=== PATIENT | female | born 1995 | race Caucasian/White ===

== ENCOUNTER 2022-03-17 21:20 | Emergency (ER) | payer OTHER, SELFPAY ==
[2022-03-17 21:30] VITALS: BP 137/79; PULSE 112; RESP 18; TEMP 37.5; O2SAT 96
--- NOTE | 2022-03-17 21:57 | DI.RAD.S_ITS ---
PROCEDURE: XR CHEST 1V INDICATIONS: chest pain TECHNIQUE: One view of the chest was acquired. COMPARISON: None. FINDINGS: Surgical changes and devices: None. Lungs and pleura: Lungs are clear. No pleural effusions or pneumothorax. Mediastinum: Mediastinal contours appear normal. Heart size is normal. Bones and chest wall: No suspicious bony lesions. Overlying soft tissues appear unremarkable. IMPRESSION: 1. No acute cardiopulmonary disease. Dictated by: Jakob Levy M.D. on 03/17/2022 at 22:45 Approved by: Jakob Levy M.D. on 03/17/2022 at 22:48
[2022-03-17] MEDS: ASPIRIN 81 MG CHEW TAB 324 MG PO (22:04)
[2022-03-17 22:30] LABS: Add Manual Diff / Slide Review NO; Basophils Absolute Auto 0 /uL (0-100); Basophils Percent Auto 0.4 % (0-2); Eosinophils Absolute Auto 0 /uL (0-450); Eosinophils Percent Auto 0.6 % (2-4); Hematocrit 37.9 % (36-46); Hemoglobin 13.2 g/dL (12.0-16.0); Lymphocytes Absolute Auto 1700 /uL (1100-4500); Lymphocytes Percent Auto 29.2 % (25-40); Mean Corpuscular HGB Conc 34.8 % (30-36); Mean Corpuscular Hemoglobin 32.5 PG (26-34); Mean Corpuscular Volume 93.6 fL (80-100); Monocytes Absolute Auto 600 /uL (0-900); Monocytes Percent Auto 10.2 % (3-14); Neutrophils Absolute Auto 3400 /uL (1500-7000); Neutrophils Percent Auto 59.6 % (50-75); Platelet Count 190 X10^3/uL (150-400); Red Blood Cell Count 4.05 X10^6/uL (4.0-5.2); Red Cell Distribution Width 12.1 % (11.6-14.8); White Blood Cell Count 5.8 X10^3/uL (4.5-11.0)
[2022-03-17 22:34] LABS: INR 0.9 (0.9-1.3); Prothrombin Time 10.8 SECONDS (10.1-12.7)
[2022-03-17 22:37] LABS: PTT Partial Thromboplastin Tim 26 SECONDS (26-36)
[2022-03-17 22:40] LABS: Alanine Aminotransferase 26 IU/L (<35); Albumin 4.2 g/dL (3.5-5.0); Albumin Globulin Ratio 1.4 (1.0-2.8); Alkaline Phosphatase 37 U/L (38-126); Aspartate Aminotransferase 24 IU/L (14-36); BUN Creatinine Ratio 17.6 (6-22); Bilirubin Total 0.2 mg/dL (0.2-1.3); Blood Urea Nitrogen 13 mg/dL (7-17); Calcium 8.7 mg/dL (8.4-10.2); Carbon Dioxide 20 mmol/L (22-32); Chloride 111 mmol/L (98-107); Creatine Kinase 50 U/L (30-135); Estimated Glomerular Filt Rate > 60 mL/min (>60); Globulin 3.1 g/dL (1.7-4.1); Glucose 119 mg/dL (70-100); HEMOLYSIS 17 (0-50); Lipase 85 U/L (23-300); Potassium 3.7 mmol/L (3.4-5.1); Sodium 140 mmol/L (137-145); Total Protein 7.3 g/dL (6.3-8.2)
[2022-03-17 22:51] LABS: Troponin I < 0.012 ng/mL (0.01-0.034)
--- NOTE | 2022-03-18 00:16 | ED_ITS ---
HPI - Chest Pain General Chief Complaint: Chest Pain Stated Complaint: tightness in chest Time Seen by Provider: 03/18/22 00:06 Mode of arrival: Ambulatory Limitations: no limitations History of Present Illness HPI narrative: Patient here with . Complaints of left-sided chest pain that radiated to her left arm and face with tingling they last about 10 minutes yesterday. Around 3:00 p.m.. She had another episode today but not quite as severe. Currently asymptomatic. Patient has seen Cardiology group in [place] when she was a teenager for irregular heartbeat but also for an opening between the ventricles. She states they tried to do a surgery by camera but unable to find the opening to close it at that time. They recommended returning for open heart surgery but this was never done. Denies any exertional chest pain or dyspnea. Denies any syncope. Related Data Allergies Allergy/AdvReac Type Severity Reaction Status Date / Time No Known Drug Allergies Allergy Verified 03/17/22 22:04 Review of Systems Review of Systems Narrative: GENERAL: negative chills, fatigue, malaise, fever, sweats. HEENT: negative sinus pain, ear pain, sore throat RESPIRATORY: negative dyspnea, cough CARDIOVASCULAR: Positive chest pain, palpitations GASTROINTESTINAL: negative nausea, vomiting, abdominal pain : negative dysuria, frequency, hematuria MUSCULOSKELETAL: negative muscle or bony pain SKIN: negative rash, skin lesions NEUROLOGIC: negative weakness, positive numbness ROS Unobtainable: All systems reviewed & are unremarkable except as noted in HPI and below Patient History tobacco type: vaping alcohol intake frequency: holidays/special occasions only Substance Use Type: does not use Exam Narrative Exam Narrative: GENERAL: in no distress, not toxic not dyspneic HEAD: Normocephalic. EYES: Pupils equal round No scleral icterus. ENT: Mucous membranes moist. NECK: Trachea midline. CARDIOVASCULAR: Regular rate and rhythm, there is systolic murmur RESPIRATORY: Clear to auscultation. Breath sounds equal bilaterally. No wheezes, rales, or rhonchi. GASTROINTESTINAL: Abdomen soft, non-tender EXTREMITIES: No gross deformities. BACK: No flank tenderness. NEURO: AOx4. 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 SKIN: Warm and dry PSYCH: Not anxious, is cooperative Initial Vital Signs Initial Vital Signs: Vital Signs Temperature 99.5 F 03/17/22 21:30 Pulse Rate 112 H 03/17/22 21:30 Respiratory Rate 18 03/17/22 21:30 Blood Pressure 137/79 03/17/22 21:30 Pulse Oximetry 96 03/17/22 21:30 Oxygen Delivery Method 03/17/22 21:30 Course Course Course Narrative: No new issues during course of stay Orders Ordered: ED Orders 03/17/22 21:57 XR chest 1V Stat EKG-12 Lead Stat 03/17/22 22:23 Complete Blood Count AUTO DIFF Stat Comprehensive Metabolic Panel Stat Lipase Stat Magnesium Stat Partial Thromboplastin Time Stat Prothrombin Time INR Stat Troponin & CK Cardiac Panel Stat 03/18/22 22:23 D Dimer Stat Discontinued Medications Aspirin (Aspirin 81 Mg Chew Tab) 324 mg PO NOW ONE Stop: 03/17/22 21:57 Last Admin: 03/17/22 22:04 Dose: 324 mg Documented By: AP Reevaluation(s) Reevaluation #1: Reviewed my conversation and results with patient and . My conversation with cardiology. Recommending admission/observation and echocardiogram. They have declined and refused to stay. Please see note below for leaving against medical advice. Time: 00:33 Consultations Consultation #1: Spoke with Dr. Mcdowell, cardiology, who recommends patient to be admitted/observe for echocardiogram and continued blood work through the night. No stress test. Time: 00:15 Vital Signs Vital signs: Vital Signs - 8 hr 03/17/22 21:30 Temperature 99.5 F Pulse Rate 112 H Respiratory Rate 18 Blood Pressure 137/79 Pulse Oximetry 96 Oxygen Delivery Method Room Air MDM - Chest Pain Differential Diagnosis Differential diagnosis: Likely stable angina, unstable angina pectoris, atypical chest pain, st elevation myocardial infarction, chest pain and other (Pulmonary embolism) Lab Data Result diagrams: 03/17/22 22:23 03/17/22 22:23 Labs: Lab Results 03/17/22 03/17/22 03/17/22 Range/Units 22:23 22:23 22:23 WBC 5.8 (4.5-11.0) X10^3/uL RBC 4.05 (4.0-5.2) X10^6/uL Hgb 13.2 (12.0-16.0) g/dL Hct 37.9 (36-46) % MCV 93.6 (80-100) fL MCH 32.5 (26-34) PG MCHC 34.8 (30-36) % RDW 12.1 (11.6-14.8) % Plt Count 190 (150-400) X10^3/uL Neut % (Auto) 59.6 (50-75) % Lymph % (Auto) 29.2 (25-40) % [place] % (Auto) 10.2 (3-14) % Eos % (Auto) 0.6 L (2-4) % Baso % (Auto) 0.4 (0-2) % Neut # (Auto) 3400 (8814-2839) /uL Lymph # (Auto) 1700 (3193-5385) /uL [place] # (Auto) 600 (0-900) /uL Eos # (Auto) 0 (0-450) /uL Baso # (Auto) 0 (0-100) /uL PT 10.8 (10.1-12.7) SECONDS INR 0.9 (0.9-1.3) APTT 26 (26-36) SECONDS D-Dimer (<500) ng/ml Sodium 140 (137-145) mmol/L Potassium 3.7 (3.4-5.1) mmol/L Chloride 111 H (98-107) mmol/L Carbon Dioxide 20 L (22-32) mmol/L BUN 13 (7-17) mg/dL Creatinine 0.74 (0.52-1.04) mg/dL Estimated GFR > 60 (>60) mL/min BUN/Creatinine Ratio 17.6 (6-22) Glucose 119 H (70-100) mg/dL Calcium 8.7 (8.4-10.2) mg/dL Magnesium 2.0 (1.6-2.3) mg/dL Total Bilirubin 0.2 (0.2-1.3) mg/dL AST 24 (14-36) IU/L ALT 26 (<35) IU/L Alkaline Phosphatase 37 L (38-126) U/L Total Creatine Kinase 50 (30-135) U/L CK-MB (CK-2) TNP CK-MB (CK-2) Rel Index TNP Troponin I < 0.012 (0.01-0.034) ng/mL Total Protein 7.3 (6.3-8.2) g/dL Albumin 4.2 (3.5-5.0) g/dL Globulin 3.1 (1.7-4.1) g/dL Albumin/Globulin Ratio 1.4 (1.0-2.8) Lipase 85 (23-300) U/L // Range/Units 22:23 WBC (4.5-11.0) X10^3/uL RBC (4.0-5.2) X10^6/uL Hgb (12.0-16.0) g/dL Hct (36-46) % MCV (80-100) fL MCH (26-34) PG MCHC (30-36) % RDW (11.6-14.8) % Plt Count (150-400) X10^3/uL Neut % (Auto) (50-75) % Lymph % (Auto) (25-40) % [place] % (Auto) (3-14) % Eos % (Auto) (2-4) % Baso % (Auto) (0-2) % Neut # (Auto) (1474-7469) /uL Lymph # (Auto) (7272-0161) /uL [place] # (Auto) (0-900) /uL Eos # (Auto) (0-450) /uL Baso # (Auto) (0-100) /uL PT (10.1-12.7) SECONDS INR (0.9-1.3) APTT (26-36) SECONDS D-Dimer 393 (<500) ng/ml Sodium (137-145) mmol/L Potassium (3.4-5.1) mmol/L Chloride (98-107) mmol/L Carbon Dioxide (22-32) mmol/L BUN (7-17) mg/dL Creatinine (0.52-1.04) mg/dL Estimated GFR (>60) mL/min BUN/Creatinine Ratio (6-22) Glucose (70-100) mg/dL Calcium (8.4-10.2) mg/dL Magnesium (1.6-2.3) mg/dL Total Bilirubin (0.2-1.3) mg/dL AST (14-36) IU/L ALT (<35) IU/L Alkaline Phosphatase (38-126) U/L Total Creatine Kinase (30-135) U/L CK-MB (CK-2) CK-MB (CK-2) Rel Index Troponin I (0.01-0.034) ng/mL Total Protein (6.3-8.2) g/dL Albumin (3.5-5.0) g/dL Globulin (1.7-4.1) g/dL Albumin/Globulin Ratio (1.0-2.8) Lipase (23-300) U/L Imaging Data Chest x-ray: Radiologist's Impression: [address] [id number] XRay Report Signed Patient: Jose Manuel Phillips MR#: [id number] : 1995 Acct:[id number] Age/Sex: 26 / F Date of Service: 03/17/22 Loc: ED Accession Number: [id number] ?? Procedure: XR chest 1V Ordering Provider: Shawn Livingston MD PROCEDURE:? XR CHEST 1V ? INDICATIONS:? chest pain ? TECHNIQUE:? One view of the chest was acquired.? ? COMPARISON:? None. ? FINDINGS:? ? Surgical changes and devices:? None.? ? Lungs and pleura:? Lungs are clear.? No pleural effusions or pneumothorax.? ? Mediastinum:? Mediastinal contours appear normal.? Heart size is normal.? ? Bones and chest wall:? No suspicious bony lesions.? Overlying soft tissues appear unremarkable.? ? IMPRESSION:? ? 1.? No acute cardiopulmonary disease. ? ? ? Dictated by: Jakob Levy M.D. on 03/17/2022 at 22:45 ? ? Approved by: Jakob Levy M.D. on 03/17/2022 at 22:48 ? ECG Data Interpretation: Sinus tachycardia rate [address] elevation or depression MDM Narrative Medical decision making narrative: Spoke with patient and results and discussion with cardiology. Reviewed with them need to stay for echocardiogram. They declined admission observation due to uncertainty if this is private pay or covered under [employer]. I did review with them risks of leaving against medical advice including but not limited to heart attack stroke permanent injury/paralysis worsening symptoms. She is awake alert oriented x4. at bedside. They do not want any further testing and desire discharge home Discharge Plan Departure Patient Disposition: Left Against Medical Advice Clinical Impression: Left against medical advice, Atypical chest pain Activity Restrictions/Additional Instructions: Return immediately if you change your mind to be admitted Stand Alone Forms: Against Medical Advice
[2022-03-18 00:50] LABS: D Dimer 393 ng/ml (<500)
== END 2022-03-18 00:40 | disposition left against medical advice (07) ==
PROVIDERS: Emergency Provider Emergency Medicine
DX: R07.89 Other chest pain (principal); Z53.29 Procedure and treatment not carried out because of patient's decision for other reasons
CPT/HCPCS: 36415; 71045; 80053; 82550; 83690; 83735; 84484; 85025; 85379; 85610; 85730; 93005; 93010; 99284